=== PATIENT | male | born 1960 | race Caucasian/White ===

== ENCOUNTER 2018-02-17 13:15 | Outpatient (CLI) | payer OTHER ==
--- NOTE | 2018-02-18 13:24 | MRI ---
MRI PELVIS (PROSTATE) WITH AND WITHOUT IV CONTRAST: Date: 02/17/18 HISTORY: 57-year-old male with atypical small acinar proliferation of prostate. PSA on 01/29/18 measured 2.73 (normal 0-4). TECHNIQUE: Multiplanar, multisequence MRI of the pelvis was performed with and without IV contrast using the pro state protocol. Review at an independent 3D workstation was performed. FINDINGS: The prostate measures 5.0 x 4.0 x 4.0 cm, with a volume of 41.6 mL. No focal abnormal area of diffusion restriction is seen in the peripheral zone. No lentiform area of abnormally decreased T2 signal is noted in the transitional zone. No focal arterial enhancing mass is seen. The prostate capsule is intact. The seminal vesicles appear normal. No lymphadenopathy seen in the pelvis. The pelvic side wall is normal. No bone marrow abnormalities are noted. IMPRESSION: PI-RADS 2: Low (clinically significant prostate cancer is unlikely to be present). This exam was interpreted in consultation with Dr Ryan Kline, Dr. Lakhwinder Nova and Dr. Ja lema, who concur. POS: [facility]
== END 2018-02-17 13:16 | disposition home or self-care (01) ==
LOC: TBSIIMAG 13:15
PROVIDERS: ATTEND Urology
DX: N42.32 Atypical small acinar proliferation of prostate (principal)
CPT/HCPCS: 72197